=== PATIENT | female | born 1945 ===

== ENCOUNTER 2020-02-22 14:11 | Outpatient (REF) | payer SELFPAY | END 2020-02-22 14:12 | disposition home or self-care (01) | LOC: HO.SCI 14:11 | PROVIDERS: PCP Internal Medicine | DX: Z13.89 Encounter for screening for other disorder (principal) ==

== ENCOUNTER 2020-04-08 09:29 | Outpatient (REF) | payer MEDICARE, SELFPAY ==
--- NOTE | 2020-04-08 09:33 | CT_ITS ---
EXAMINATION: CT SINUS WITHOUT CONTRAST CLINICAL INFORMATION: Deviated nasal septum. COMPARISON: None TECHNIQUE: Axial 2 mm thin and reformatted 2 mm thin sagittal and coronal images of sinuses were obtained. This CT examination was performed using dose optimization techniques as appropriate, variously including the following: *Automated exposure control *Adjustment of mA and/or kV according to patient size (this includes techniques or standardized protocols for targeted exams where dose is matched to indication/reason for exam; i.e. extremities or head) *Use of iterative reconstruction technique DLP: 90 mGy-cm FINDINGS: FRONTAL SINUSES AND DRAINAGE PATHWAYS: Normal. MAXILLARY SINUSES AND DRAINAGE PATHWAYS: There is a small to moderate-sized polyp or retention cyst posterior wall right maxillary sinus. The infundibula are patent. ETHMOID SINUSES: Normal. The ethmoid roofs are symmetric, with olfactory fossa depth of 8 mm on the right and 6 mm on the left. SPHENOID SINUSES AND DRAINAGE PATHWAYS: There is a small polyp or retention cyst left sphenoid sinus. The sphenoid ostia are patent. The carotid canals are covered by bone. NASAL CAVITY/NASOPHARYNX: The nasal cavity is clear. There is no nasal septal deviation/spurring. The nasopharynx is symmetric. 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 ADDITIONAL RELEVANT FINDINGS: No periapical disease is seen. The TMJs articulate normally. The orbits and skull base soft tissues are unremarkable. The middle ear cavities and mastoid air cells are clear. Limited evaluation demonstrates no acute intracranial findings. CT/CT sinus wo con IMPRESSION: Small polyp or retention cyst left sphenoid sinus and right maxillary sinus. Rest of the paranasal sinuses are well aerated. The drainage pathways are widely patent.
== END 2020-04-08 09:30 | disposition home or self-care (01) ==
LOC: HO.CT 09:29
PROVIDERS: Visit Provider Otolaryngology
DX: J33.9 Nasal polyp, unspecified (principal)
CPT/HCPCS: 70486